=== PATIENT | male | born 1945 | race Caucasian/White ===

== ENCOUNTER 2017-01-27 22:43 | Emergency (ER) | payer MEDICARE ==
--- NOTE | 2017-01-27 23:20 | Emergency Department Record ---
History of Present Illness - General Chief Complaint: Fall Injury Stated Complaint: FALL Time Seen by Provider: 01/27/17 23:13 Source: Patient Mode of Arrival: Wheelchair Limitations: No limitations - History of Present Illness Initial Comments: 71 yo male presents to ED following a fall tonight. Patient reports that he was attempting to get undressed tonight and fell as he has been having progressively worsening RUE weakness for the past several weeks. Patient was diagnosed 4 weeks ago with possible "pinched nerve" to the right wrist, however patient reports increasing difficulty with raising the RUE above horizontal, weakness to the RLE, and ? right facial weakness. Patient reports mild abrasions to the right flank following his fall, denies injury to the head or neck. 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 Place Fall Occurred: Home Loss of Consciousness: None Prolonged Down Time?: No Symptoms Prior to Fall: None Context: History of frequent falls, Tripped/slipped, Other Associated Symptoms: Neck pain, Weakness - [place] Coma Scale Eye Response: (4) Open spontaneously Motor Response: (6) Obeys commands Verbal Response: (5) Oriented [place] Total: 15 - Related Data Home Medications Medication Instructions Recorded Confirmed Last Taken Acetaminophen [Tylenol Arthritis] 650 mg PO DAILY 01/27/17 01/27/17 01/27/17 Cholecalciferol (Vitamin D3) 2,000 unit PO DAILY 01/27/17 01/27/17 01/27/17 [Vitamin D3] Dutasteride [Avodart] 0.5 mg PO DAILY 01/27/17 01/27/17 01/27/17 Dutasteride [Dutasteride] 0.5 mg PO DAILY 01/27/17 01/27/17 01/27/17 Losartan Potassium [Losartan 100 mg PO QHS 01/27/17 01/27/17 01/27/17 Potassium] Omeprazole [Prilosec] 20 mg PO QAM 01/27/17 01/27/17 01/27/17 Pravastatin Sodium [Pravachol] 40 mg PO QHS 01/27/17 01/27/17 01/27/17 Allergies Allergy/AdvReac Type Severity Reaction Status Date / Time No Known Drug Allergies Allergy Verified 01/27/17 22:46 Travel Screening - Travel/Exposure Within Last 30 Days Have you traveled within the last 30 days?: Yes Location Detail:: [place] and [place] - Travel Symptoms Symptom Screening: Weakness Review of Systems Constitutional: Denies: Chills, Fever, Malaise, Night sweats Eyes: Denies: Eye discharge, Eye pain ENT: Denies: Congestion, Ear pain, Epistaxis Respiratory: Denies: Cough, Dyspnea Cardiovascular: Denies: Chest pain, Dyspnea on exertion Endocrine: Denies: Fatigue, Heat or cold intolerance Gastrointestinal: Denies: Abdominal pain, Nausea, Vomiting Genitourinary: Denies: Incontinence, Retention Musculoskeletal: Denies: Arthralgia, Back pain, Gout, Joint swelling Skin: Denies: Bruising, Change in color Neurological: Reports: Numbness, Weakness. Denies: Abnormal gait, Confusion, Headache, Seizure Psychiatric: Denies: Anxiety Hematological/Lymphatic: Denies: Anemia, Blood Clots Past Medical History - SOCIAL HISTORY Smoking Status: Never smoker Alcohol Use: Rare Drug Use: None - RESPIRATORY Hx Respiratory Disorders: No - CARDIOVASCULAR Hx Cardio Disorders: Yes Hx Hypertension: Yes - NEURO Hx Neuro Disorders: No - GI Hx GI Disorders: Yes Hx Reflux: Yes - Hx Genitourinary Disorders: Yes Hx Prostate Problems: Yes - ENDOCRINE Hx Endocrine Disorders: No - MUSCULOSKELETAL Hx Musculoskeletal Disorders: No - PSYCH Hx Psych Problems: No - HEMATOLOGY/ONCOLOGY Hx Hematology/Oncology Disorders: No Family Medical History Any Significant Family History?: Yes Hx Heart Disease: Father, Mother Hx Stroke: Mother Physical Exam - General General Appearance: Alert, Oriented x3, Cooperative, Mild distress Limitations: No limitations - Head Head exam: Atraumatic, Normocephalic, Normal inspection Head exam detail: Other (There is mild facial droop of the right face on examination, ? new per patient and family). negative: Abrasion, Contusion, Ortiz's sign, General tenderness, Hematoma, Laceration - Eye Eye exam: Normal appearance, EOMI. negative: Conjunctival injection, Periorbital swelling, Periorbital tenderness, Scleral icterus - ENT Ear exam: negative: Auricular hematoma, Auricular trauma Nasal Exam: negative: Active bleeding, Discharge, Dried blood, Foreign body Mouth exam: negative: Drooling, Laceration, Muffled voice, Tongue elevation - Neck Neck exam: Normal inspection. negative: Meningismus, Tenderness - Respiratory Respiratory exam: Normal lung sounds bilaterally. negative: Rales, Respiratory distress, Rhonchi, Stridor - Cardiovascular Cardiovascular Exam: Regular rate, Normal rhythm, Normal heart sounds - GI/Abdominal GI/Abdominal exam: Soft. negative: Rebound, Rigid, Tenderness - Rectal Rectal exam: Deferred - exam: Deferred - Extremities Extremities exam: negative: Calf tenderness, Pedal edema, Tenderness - Back Back exam: Reports: Other (abrasions to the right lower back). Denies: CVA tenderness (R), CVA tenderness (L) - Neurological Neurological exam: Alert, Motor sensory deficit, Oriented X3, Other (On examination, patient appears to difficulty with proximal RUE limb placement and mildly delayed motor receivable clerk strength, mild delya with EHL right/plantar flexion right.) - Psychiatric Psychiatric exam: Normal affect, Normal mood - Skin Skin exam: Abrasion (as described above), Normal color Type of lesion: abrasion Course Vital Signs 01/27/17 22:47 Temperature 98.0 F Pulse Rate 88 Respiratory 20 Rate Blood Pressure 173/99 Pulse Ox 92 L - Reevaluation(s) Reevaluation #1: 01/27/17 23:58 Labs reviewed and are grossly unremarkable for an acute process. Decardo 10 mg IV ordered following preliminary review of the patient's imaging study (final report pending). Reevaluation #2: 01/28/17 00:14 EKG: NSR 75 Normal axis, normal intervals No acute ST-T wave changes CT Brain: Cerebral metatastic disease, (4 hypodense lesions) largest lesion 2.2 cm with surrounding vasogenic edema CT Cervical Spine: No acute process. Case was discussed with Dr. Cesar (Neurosurgery, no further recommendations at this time. Case was then discussed with Dr. Enriquez (Critical Care attending), will accept admission to critical care unit. Medical Decision Making - Lab Data Result diagrams: 01/27/17 23:15 01/27/17 23:15 Critical Care Time Critical Care Time: Yes Total Critical Care Time: 35 Critical Care Time: Diagnosis and treatment of brain metastases with mid-line shift present, transfer to neuro-surgical ICU Disposition Disposition: Transfer Clinical Impression: Brain lesion, Brain edema Disposition: Acute Care Hospital Transfer Transfer To: [facility] Reason For Transfer: Neurosurgical evaluation Accepting Physician: Zoe Time Discussed w/Accepting Physician: 00:21 Condition: (2) Stable Forms: Patient Portal Access Time of Disposition: 00:21 Quality - Quality Measures Quality Measures: N/A - Blood Pressure Screening Does Patient Have Any of the Following: No Blood Pressure Classification: Hypertensive Reading Systolic Measurement: 173 Diastolic Measurement: 99 Screening for High Blood Pressure: < First Hypertensive BP, F/U Documented > [ [id number]] First Hypertensive Follow-up Interventions: Referral to alternative/primary care provider.
[2017-01-27 23:35] LABS: INR 0.97; PROTHROMBIN TIME (PATIENT) 10.5 SECONDS (9.5-12.1)
[2017-01-27 23:39] LABS: BASO % 0.3 % (0-6); GRAN % 54.1 % (47-80); HEMATOCRIT 38.2 % (42.0-52.0); HEMOGLOBIN 12.6 gm/dl (14.0-18.0); LYMPH % 33.4 % (16-45); MEAN CELL VOLUME 87.4 fl (81-97); MEAN CORPUSCULAR HEMOGLOBIN 28.8 pg (27-33); MEAN PLATELET VOLUME 11.9 fl (7.4-10.4); MONO % 10.2 % (0-9); PLATELET COUNT 189 K/uL (130-400); RED BLOOD COUNT 4.37 M/uL (4.40-5.70); RED CELL DISTRIBUTION WIDTH 13.2 % (11.5-14.5); WHITE BLOOD COUNT W/O DIFF 9.9 K/uL (4.2-12.2)
[2017-01-27 23:54] LABS: ALB/GLOB RATIO 1.2 (1.1-1.8); ALBUMIN 4.2 gm/dL (3.5-5.0); ALKALINE PHOSPHATASE 85 U/L (38-126); ALT/SGPT 31 U/L (21-72); ANION GAP 12.3 (7-16); AST/SGOT 17 U/L (17-59); BILIRUBIN,TOTAL 0.84 mg/dL (0.2-1.3); BLOOD UREA NITROGEN 19 mg/dL (9-20); CARBON DIOXIDE 24.7 mmol/L (22-30); CREATININE 1.2 mg/dL (0.66-1.25); EST GLOMERULAR FILTRATION RATE > 60 ml/min; GLUCOSE,RANDOM 178 mg/dL (70-110); TOTAL PROTEIN 7.8 gm/dL (6.3-8.2)
[2017-01-28] MEDS ORDERED: DEXAMETHASONE SOD PHOSPHATE 10MG/ML VIAL IVP ONE
--- NOTE | 2017-01-29 12:50 | CT SCAN REPORT ---
DATE: 01/28/2017. EXAM: CT SCAN OF THE BRAIN WITHOUT CONTRAST. HISTORY: Fall. TECHNIQUE: CT scan of the brain was obtained without contrast. FINDINGS: There are four hyperdense lesions in the left cerebral hemisphere. There is significant surrounding vasogenic edema. There is mild mass effect upon the left lateral ventricle. No extra-axial fluid collection is appreciated. No midline shift. The right cerebral hemisphere appears normal. The orbits, paranasal sinuses, and mastoid air cells are normal. IMPRESSION: FINDINGS CONSISTENT WITH HEMORRHAGIC METASTASIS. THERE IS SIGNIFICANT SURROUNDING VASOGENIC EDEMA. THERE IS MILD MASS EFFECT UPON THE LEFT LATERAL VENTRICLE. MRI MAY BE OF BENEFIT FOR BETTER EVALUATION. JOB NUMBER: [id number] MTDD
--- NOTE | 2017-01-29 12:54 | CT SCAN REPORT ---
DATE: 01/28/2017. EXAM: CT SCAN OF THE CERVICAL SPINE. HISTORY: Trauma. TECHNIQUE: Sequential axial images were obtained from the foramen magnum through the cervical spine without intravenous contrast administration. Sagittal and coronal reformatted images were performed. FINDINGS: There is no evidence of fracture, subluxation, or hypertrophied facets. There is mild degenerative change of the cervical spine. There is osteopenia. No definitive malignant lesion is appreciated. IMPRESSION: OSTEOPENIA. NO DEFINITIVE NEOPLASTIC LESION IS APPRECIATED. THERE IS NO EVIDENCE OF FRACTURE, SUBLUXATION, OR HYPERTROPHIED FACETS. JOB NUMBER: [id number] MTDD
== END 2017-01-28 00:50 | disposition short-term general hospital (02) ==
LOC: ER 22:43
DX: S30.811A Abrasion of abdominal wall, initial encounter (principal); C79.31 Secondary malignant neoplasm of brain; R29.810 Facial weakness; I10 Essential (primary) hypertension; M54.2 Cervicalgia; R53.1 Weakness; Z91.81 History of falling; Y92.009 Unspecified place in unspecified non-institutional (private) residence as the place of occurrence of the external cause
CPT/HCPCS: 99285 ×2; 96374; 85025; 85610; 80053; 72125; 70450; 93005; 93010; J1100